=== PATIENT | male | born 1990 | race Hispanic/Latino ===

== ENCOUNTER 2021-04-20 16:20 | Emergency (ER) | payer OTHER ==
[2021-04-20 16:32] VITALS: BP 130/78
--- NOTE | 2021-04-20 16:47 | Emergency Department Report ---
ED General Adult HPI - General Chief complaint: Puncture Wound Stated complaint: NEEDLE STICK/WORK RELATED Time Seen by Provider: 04/20/21 16:35 Source: patient Mode of arrival: Ambulatory Limitations: No Limitations - History of Present Illness Initial comments: Patient presented for a needlestick. 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 He was poked by contaminated needle in a finger of the right hand. This did draw blood. The attics have been using apparently fentanyl, methamphetamine, as well as other substances. The patient came in for evaluation. Immunizations are up-to-date, including hepatitis B and tetanus booster. He was concerned for HIV. We do not know if the source patient's have any type of infectious pathology. - Related Data Previous Rx's Medication Instructions Recorded Last Taken Type Dolutegravir [Tivicay] 50 mg PO DAILY #30 tablet 04/20/21 Unknown Rx Emtricitabine/Tenofovir (Tdf) 1 each PO DAILY #30 tablet 04/20/21 Unknown Rx [Emtricitabine-Tenofv 200-300Mg] Ondansetron [Zofran ODT TAB] 8 mg PO Q8HR PRN #20 tab.rapdis 04/20/21 Unknown Rx Allergies Allergy/AdvReac Type Severity Reaction Status Date / Time No Known Allergies Allergy Verified 04/20/21 16:31 ED Review of Systems ROS: Stated complaint: NEEDLE STICK/WORK RELATED Other details as noted in HPI Comment: All other systems reviewed and negative Constitutional: denies: fever ENT: denies: throat pain Musculoskeletal: as per HPI Skin: as per HPI Hematological/Lymphatic: denies: easy bruising ED Past Medical Hx - Past Medical History Previous Medical History?: No - Social History Smoking Status: Never Smoker Substance Use Type: None - Medications Home Medications: Home Medications Medication Instructions Recorded Confirmed Last Taken Type Dolutegravir [Tivicay] 50 mg PO DAILY #30 tablet 04/20/21 Unknown Rx Emtricitabine/Tenofovir (Tdf) 1 each PO DAILY #30 tablet 04/20/21 Unknown Rx [Emtricitabine-Tenofv 200-300Mg] Ondansetron [Zofran ODT TAB] 8 mg PO Q8HR PRN #20 tab.rapdis 04/20/21 Unknown Rx ED Physical Exam - General Limitations: No Limitations, Other (Pulse ox is noted and normal) General appearance: alert, in no apparent distress - Head Head exam: Present: atraumatic, normal inspection - Eye Eye exam: Present: normal appearance. Absent: scleral icterus - ENT ENT exam: Present: normal exam, normal external ear exam - Neck Neck exam: Present: normal inspection - Respiratory Respiratory exam: Absent: respiratory distress - Cardiovascular Cardiovascular Exam: Present: other (Skin is warm and dry.) - Extremities Exam Extremities exam: Present: other (There is a single puncture wound to the distal tip of the right index finger.) - Neurological Exam Neurological exam: Present: alert, oriented X3, normal gait - Psychiatric Psychiatric exam: Present: normal affect, normal mood - Skin Skin exam: Present: warm, dry ED Course Vital Signs 04/20/21 16:31 Temperature 98.1 F Pulse Rate 64 Respiratory 16 Rate Blood Pressure 130/78 [Left] O2 Sat by Pulse 99 Oximetry - Reevaluation(s) Reevaluation #1: 04/20/21 16:46 Labs were ordered. Patient does want postexposure prophylaxis for HIV. He is trying to determine his hepatitis B vaccination status. Reevaluation #2: 04/20/21 17:52 Labs are noted and medications were started ED Medical Decision Making - Lab Data Result diagrams: 04/20/21 Unknown 04/20/21 Unknown - Medical Decision Making Patient presented with a needlestick from a contaminated needle. He has suspicion that the source patients were high risk. Patient has elected to undergo postexposure prophylaxis after I discussed the risks, benefits, and a lternatives with him. These prescriptions were written. He can follow-up with work comp through his employer. His hepatitis B vaccine is up-to-date. He should not require postexposure prophylaxis for hepatitis B. Hepatitis C test is pending. Critical Care Time: No Critical care attestation.: If time is entered above; I have spent that time in minutes in the direct care of this critically ill patient, excluding procedure time. ED Disposition Clinical Impression: Needle stick injury of finger of right hand Disposition: HOME / SELF CARE / HOMELESS Is pt being admited?: No Condition: Stable Additional Instructions: Keep the wound clean. Follow-up through your work comp. Return for problems. Prescriptions: Emtricitabine/Tenofovir (Tdf) [Emtricitabine-Tenofv 200-300Mg] 1 each PO DAILY #30 tablet Dolutegravir [Tivicay] 50 mg PO DAILY #30 tablet Ondansetron [Zofran ODT TAB] 8 mg PO Q8HR PRN #20 tab.rapdis PRN Reason: Nausea Referrals: PRIMARY CARE, [Referring] - 3-5 Days
[2021-04-20 17:32] LABS: Hematocrit 46.5 % (35.5-45.6); Hemoglobin 16.1 gm/dl (11.8-15.2); Mean Corpuscular HGB Conc 35 % (32-34); Mean Corpuscular Volume 96 fl (84-94); Platelet Count 193 K/mm3 (140-440); Red Blood Count 4.83 M/mm3 (3.65-5.03); Red Cell Distribution Width 12.7 % (13.2-15.2)
[2021-04-20 17:33] LABS: Alanine Aminotransferase 18 units/L (7-56); Albumin 4.9 g/dL (3.9-5); BUN/Creatinine Ratio 14; Blood Urea Nitrogen 15 mg/dL (9-20); Calcium 9.5 mg/dL (8.4-10.2); Hemolysis Index 39
== END 2021-04-20 18:19 | disposition home or self-care (01) ==
LOC: ED 16:20
DX: S69.81XA Other specified injuries of right wrist, hand and finger(s), initial encounter (principal); W46.1XXA Contact with contaminated hypodermic needle, initial encounter; Y93.89 Activity, other specified; Y92.89 Other specified places as the place of occurrence of the external cause; Y99.8 Other external cause status
CPT/HCPCS: 36415; 80053; 85027; 86705; 99283